=== PATIENT | female | born 1965 | race Caucasian/White ===

== ENCOUNTER 2019-11-08 11:09 | Inpatient (IN) ==
[2019-11-08] MEDS ORDERED: Ondansetron 4 MG/2 ML VIAL IVP ONE (11:44)
[2019-11-08] MEDS ORDERED: *HR* OxyCODONE Immed Rel 5 MG TABLET PO PRN ×2 (11:44→14:45)
[2019-11-08] MEDS ORDERED: *HR* Promethazine 25 MG/ML VIAL IVP PRN (11:44)
[2019-11-08] MEDS ORDERED: *HR* HYDROmorphone PF 0.5 MG/0.5 ML SYRINGE IVP PRN (11:44)
[2019-11-08] MEDS ORDERED: Clindamycin 900 MG/50 ML 900 MG/50 ML IV.SOLN IVPB ONE (11:50)
[2019-11-08] MEDS ORDERED: Ringers Solution, Lactated 1,000 ML IVC SCH ×2 (12:00→14:45)
[2019-11-08] MEDS ORDERED: Albuterol 2.5 MG/3 ML NEBULIZER IH PRN (12:01)
[2019-11-08] MEDS ORDERED: Lidocaine -MPF 2% 2 ML VIAL ONE (12:11)
[2019-11-08] MEDS ORDERED: *HR* Propofol 200 MG/20 ML VIAL IVP ONE (12:11)
[2019-11-08] MEDS ORDERED: ROPIVACAINE/PF/NS 0.25% 1 EACH SYRINGE INTRAART ONE (12:19)
[2019-11-08] MEDS ORDERED: *HR* Midazolam HCl 2 MG/2 ML VIAL ONE (12:19)
[2019-11-08] MEDS ORDERED: Ropivacaine/PF 0.5% 30 ML VIAL ONE (12:19)
[2019-11-08] MEDS ORDERED: *HR* FentaNYL (PF) 100 MCG/2 ML VIAL ONE (12:19)
[2019-11-08] MEDS ORDERED: Ethanol\\Acetic Acid\\Na Ace\\Ben 1,000 ML IRRIG.SOLN IR ONE (12:31)
[2019-11-08] MEDS ORDERED: Vancomycin 1,000 MG VIAL ONE (12:31)
[2019-11-08] MEDS ORDERED: Ondansetron 4 MG/2 ML VIAL ONE (12:51)
[2019-11-08] MEDS ORDERED: Dexamethasone 4 MG/ML VIAL ONE (12:51)
[2019-11-08] MEDS ORDERED: *HR* Dextrose 50 % in Water (Vial) 50 ML VIAL IVP PRN (14:45)
[2019-11-08] MEDS ORDERED: MOM Conc 10 ML UD.LIQ PO PRN (14:45)
[2019-11-08] MEDS ORDERED: *HR* OxyCODONE/APAP 5/325 TABLET PO PRN (14:45)
[2019-11-08] MEDS ORDERED: Ondansetron 4 MG/2 ML VIAL IVP PRN (14:45)
[2019-11-08] MEDS ORDERED: Insulin LISPRO 300 UNITS/3 ML VIAL SQ SCH ×2 (14:45→21:00)
[2019-11-08] MEDS ORDERED: Sennosides 8.6 MG TABLET PO PRN (14:45)
[2019-11-08] MEDS ORDERED: Naloxone 0.4 MG/ML INJ IVP PRN (14:45)
[2019-11-08] MEDS ORDERED: D5% in Water 1,000 ML IVC PRN (14:45)
[2019-11-08] MEDS ORDERED: Dextrose Gel 15 GM/37.5 ML TUBE PO PRN ×2 (14:45)
[2019-11-08 14:51] LABS: Hematocrit 47.6 % (35.3-44.9); Hemoglobin 15.5 g/dL (11.5-15.4)
[2019-11-08 16:09] VITALS: BP 121/77
[2019-11-08] MEDS ORDERED: Clindamycin 900 MG/50 ML 900 MG/50 ML IV.SOLN IVPB SCH ×2 (16:24→20:00)
[2019-11-08] MEDS ORDERED: *HR* Enoxaparin 30 MG/0.3 ML SYRINGE SQ ONE (16:33)
[2019-11-08] MEDS ORDERED: NON-FORMULARY MEDICATION 1 EACH EACH (Omega-3/Dha/Epa/Fish Oil [Fish Oil 1,000 Mg Softgel] PO SCH (21:00)
[2019-11-08] MEDS ORDERED: Azelastine 0.1% Nasal Spray 30 ML BOTTLE NS SCH (21:00)
[2019-11-08] MEDS ORDERED: BuPROPion SR (12 HR) 100 MG TABLET PO SCH (21:00)
[2019-11-08] MEDS ORDERED: Fluticasone Propionate Nasal 50 MCG/SPRAY BOTTLE NS SCH (21:00)
[2019-11-09] MEDS ORDERED: Aspirin Enteric Coated 81 MG Tablet PO SCH ×2 (09:00)
[2019-11-09] MEDS ORDERED: Loratadine 10 MG TABLET PO SCH (09:00)
[2019-11-10] MEDS ORDERED: POTASSIUM GLUCONATE 500 MG PO SCH (09:00)
== END 2019-11-08 19:00 | disposition home health service (06) | DRG 483 ==
LOC: SAMDAY 11:09 → 3NENU 14:43
PROVIDERS: ADMIT Orthopaedic Surgery; ATTEND Orthopaedic Surgery